=== PATIENT | female | born 1985 | race African-American/Black ===

== ENCOUNTER 2019-03-13 09:05 | Outpatient (CLI) | payer OTHER ==
[~2019-03-13 09:05] MED LIST: FERRIC CARBOXYMALTOSE 750 MG in NORMAL SALINE 250 ML IV PRN; NORMAL SALINE 250 ML IV PRN
[2019-03-13 09:26] VITALS: BP 137/74
== END 2019-03-13 11:00 | disposition home or self-care (01) ==
LOC: II 09:05 → 5TH 09:13 → II 11:00
PROVIDERS: ATTEND Obstetrics & Gynecology
DX: O99.019 Anemia complicating pregnancy, unspecified trimester (principal)
CPT/HCPCS: 96365; J7050; J1439

== ENCOUNTER 2019-03-20 08:50 | Outpatient (CLI) | payer OTHER ==
[2019-03-20 09:15] VITALS: BP 120/63
== END 2019-03-20 09:40 | disposition home or self-care (01) ==
LOC: II 08:50 → 5TH 08:52 → II 09:40
PROVIDERS: ATTEND Obstetrics & Gynecology
DX: O99.019 Anemia complicating pregnancy, unspecified trimester (principal)
CPT/HCPCS: 96365; J7050; J1439

== ENCOUNTER 2019-04-04 08:35 | Day surgery (SDC) | payer OTHER ==
[2019-04-03 09:58] LABS: HEMATOCRIT 33.7 % (36.0-47.0); HEMOGLOBIN 10.6 g/dL (12.0-15.5); MEAN CORPUSCULAR HEMOGLOBIN 25.4 pg (27.0-33.4); MEAN CORPUSCULAR HGB CONC 31.4 g/dL (32.0-36.0); MEAN CORPUSCULAR VOLUME 81 fl (80-97); PLATELET COUNT 320 10^3/uL (150-450); RED BLOOD COUNT 4.16 10^6/uL (3.72-5.28); RED CELL DISTRIBUTION WIDTH 29.3 % (11.5-14.0); WHITE BLOOD COUNT 5.7 10^3/uL (4.0-10.5)
[2019-04-03 10:24] LABS: APPEARANCE,URINE SLIGHTLY-CLOUDY; BILIRUBIN,URINE NEGATIVE (NEGATIVE); COLOR,URINE YELLOW; GLUCOSE, URINE NEGATIVE (NEGATIVE); KETONES,URINE NEGATIVE (NEGATIVE); LEUKOCYTE ESTERASE,URINE NEGATIVE (NEGATIVE); NITRITE,URINE NEGATIVE (NEGATIVE); PROTEIN,URINE 30 mg/dL (NEGATIVE); URINE SPECIFIC GRAVITY 1.023
[2019-04-04] MEDS ORDERED: LIDOCAINE 2% INJ-PF (100 MG/5 ML) SYRINGE ONE (10:29)
[2019-04-04] MEDS ORDERED: MIDAZOLAM 2 MG/2 ML INJ ONE (10:29)
[2019-04-04] MEDS ORDERED: FENTANYL CITRATE INJ/PF 250 MCG/5 ML AMPULE ONE (10:29)
[2019-04-04] MEDS ORDERED: ONDANSETRON HCL INJ/PF 4 MG/2 ML SDV ONE (10:30)
[2019-04-04] MEDS ORDERED: PROPOFOL INJ 200 MG/20 ML VIAL IV ONE (10:30)
[2019-04-04] MEDS ORDERED: DEXAMETHASONE SOD PHOSPHATE INJ 4 MG/1 ML VIAL ONE (10:30)
[2019-04-04] MEDS ORDERED: KETOROLAC TROMETHAMINE INJ/PF 30 MG/1 ML SDV IV PRN (11:15)
[2019-04-04] MEDS ORDERED: RINGERS SOLUTION,LACTATED 1,000 ML IV PRN (11:15)
[2019-04-04] MEDS ORDERED: IBUPROFEN 800 MG TABLET PO PRN (11:15)
--- NOTE | 2019-04-04 11:19 | Operative Report ---
Operative Report DATE OF SURGERY: 04/04/19 PREOPERATIVE DIAGNOSIS: Heavy menses POSTOPERATIVE DIAGNOSIS: Same OPERATION: D&C hysteroscopy NovaSure ablation SURGEON: RHONA PIERCE ANESTHESIA: GA TISSUE REMOVED OR ALTERED: Uterine contents COMPLICATIONS: None ESTIMATED BLOOD LOSS: 10 cc INTRAOPERATIVE FINDINGS: Uterine cavity was sounded 8 cm a cavity length of 4- 1/2 cm and a width of 4.3 cm PROCEDURE: Patient was taken the OR and placed in supine position. General anesthesia was induced. She is placed in dorsolithotomy position using Carlos stirrups. Her perineum and vagina were prepared and draped in sterile fashion. She had just voided and catheter was not used. A weighted speculum was placed in the vagina and the anterior lip cervix was grasped with a tenaculum. The uterus sounded to 8 cm before and at the end of the case. The cervix was gently dilated endocervical curettings were obtained endometrial curettings were obtained. Hysteroscopy was performed which showed a empty uterine cavity and the measurement of the cavity length was taken. The NovaSure device was placed tested and fired without incident. At the end of the case the repeat hysteroscopy showed a well ablated uterine cavity. All instruments were removed. Patient was placed back in supine position taken to recovery in stable condition.
--- NOTE | 2019-04-04 11:21 | Discharge Summary ---
Discharge Summary (SDC) - Discharge Final Diagnosis: Heavy menses Date of Surgery: 04/04/19 Discharge Date: 04/04/19 Condition: Good Prescriptions: Ibuprofen [Motrin 800 mg Tablet] 800 mg PO Q8HP PRN #20 tablet PRN Reason: Discharge Diet: Regular Discharge Activity: Balance Activity w/Rest, Slowly Increase Activity Home Care Assistance: None Needed Report the Following to Your Physician Immediately: Fever over 101 Degrees
[2019-04-04] MEDS ORDERED: NALOXONE HCL INJ/PF 0.4 MG/1 ML SDV ONE (11:27)
[2019-04-04] MEDS ORDERED: PROMETHAZINE HCL INJ 25 MG/1 ML VIAL IV PRN ×2 (11:38)
[2019-04-04] MEDS ORDERED: OXYCODONE-ACETAMINOPHEN 5-325 MG TABLET PO PRN (11:38)
[2019-04-04] MEDS ORDERED: ONDANSETRON HCL INJ/PF 4 MG/2 ML SDV IV PRN (11:38)
[2019-04-04] MEDS ORDERED: FENTANYL CITRATE INJ/PF 100 MCG/2 ML AMPUL IV PRN (11:38)
[2019-04-04] MEDS ORDERED: DIPHENHYDRAMINE HCL 50 MG/ML VIAL IV PRN (11:38)
[2019-04-04] MEDS ORDERED: ACETAMINOPHEN 1,000 MG/100 ML RTUPB IV ONE (11:54)
[2019-04-04] MEDS ORDERED: KETOROLAC TROMETHAMINE INJ/PF 30 MG/1 ML SDV ONE (12:08)
[2019-04-04] MEDS ORDERED: OXYCODONE-ACETAMINOPHEN 5-325 MG TABLET ONE (12:55)
[2019-04-04] MEDS ORDERED: OXYCODONE-ACETAMINOPHEN 5-325 MG TABLET PO ONE (13:20)
[2019-04-04 14:03] VITALS: BP 123/78
[2019-04-04] MEDS ORDERED: GLYCOPYRROLATE 1 MG/5 ML VIAL ONE (14:10)
== END 2019-04-04 13:55 | disposition home or self-care (01) ==
LOC: OROUT 08:35
PROVIDERS: ATTEND Obstetrics & Gynecology
DX: N92.1 Excessive and frequent menstruation with irregular cycle (principal); I10 Essential (primary) hypertension; E11.9 Type 2 diabetes mellitus without complications; Z79.899 Other long term (current) drug therapy; G47.33 Obstructive sleep apnea (adult) (pediatric); E66.9 Obesity, unspecified
CPT/HCPCS: 36415 ×2; 82962; 84132; 85027; 81025; 81001; 88305 ×2; 00952; 58563; J2250; J1100; J3010; J2001; J1885; J2310; J2405; J2704; J0131; J3490; 952